=== PATIENT | male | born 1965 | race Caucasian/White ===

== ENCOUNTER 2019-10-12 12:33 | Emergency (ER) | payer MEDICAID, OTHER ==
--- NOTE | 2019-10-12 14:34 | CR ---
Chest and right ribs: Frontal view of the chest was obtained as well as three views of the right ribs. Comparison: No previous chest x-ray. Heart size is normal. Tortuous thoracic aorta is seen. Two small nodules are noted within the right lung base. Lungs otherwise are clear. No discrete fracture or other rib abnormality is appreciated. Scattered degenerative endplate spurring is noted within the spine. Impression: 1. Two small nodules within the right lung base. Chest CT recommended to further evaluate. This can be performed without contrast. 2. Nothing acute is otherwise seen within the chest. 3. No discrete right-sided rib abnormality is appreciated. Diagnostic code #9 Study was dictated in [place] Standard Time
[2019-10-12] MEDS ORDERED: Aspirin 81 MG Tab.Chew PO ONE (14:39)
--- NOTE | 2019-10-12 14:46 | EDM.PDOC ---
ED HPI GENERAL MEDICAL PROBLEM - General Chief Complaint: Chest Pain Stated Complaint: RT SIDE PAIN AFTER STROKE Time Seen by Provider: 10/12/19 12:55 Source of Information: Reports: Patient, RN Notes Reviewed - History of Present Illness INITIAL COMMENTS - FREE TEXT/NARRATIVE: 54-year-old male comes in with right-sided chest pain that started 2 days ago. He states this first started as a pleuritic achy type discomfort worse with deep breathing 2 days ago. Yesterday the discomfort started moving to the right upper chest and was more bothersome during the night, awakening him every couple hours or so. Today the discomfort is still there but less bothersome and now once again more down in the right lower chest area worse with deep breathing. What is interesting about his history is that he just suffered a CVA 6 days ago. He was given TPA at [facility] and then transferred to [facility]. His states that they did go in and interventionally and remove "2 clots from his carotid artery". the stroke symptoms involved expressive aphasia and right-sided numbness and tingling all of which has resolved. He was released home 3 or 4 days ago. He is on daily aspirin, eliquis and crestor. He does smoke and does have family history of heart disease. Treatments CLERK CARRIER: Reports: Other (see below) Other Treatments CLERK CARRIER: biofreeze topical spray to the right anterior chest area. Right Middle Mid-Anterior Chest Pain Score (Numeric/FACES): 5 - Related Data Allergies Allergy/AdvReac Type Severity Reaction Status Date / Time No Known Allergies Allergy Verified 10/12/19 12:45 Home Meds: Home Meds Apixaban [Eliquis] 5 mg PO BID 10/12/19 [History] Rosuvastatin Calcium [Crestor] 20 mg PO DAILY 10/12/19 [History] Past Medical History Cardiovascular History: Reports: Blood Clots/VTE/DVT, Hypertension - Past Surgical History Cardiovascular Surgical History: Reports: Other (See Below) Social & Family History - Tobacco Use Smoking Status *Q: Current Every Day Smoker Years of Tobacco use: 35 Packs/Tins Daily: 1 - Caffeine Use Caffeine Use: Reports: Coffee - Recreational Drug Use Recreational Drug Use: No ED ROS GENERAL - Review of Systems Review Of Systems: See Below Constitutional: Denies: Fever, Chills, Diaphoresis HEENT: Reports: No Symptoms Respiratory: Reports: Pleuritic Chest Pain. Denies: Shortness of Breath, Wheezing, Cough Cardiovascular: Reports: Chest Pain GI/Abdominal: Denies: Abdominal Pain, Nausea, Vomiting Musculoskeletal: Denies: Neck Pain, Shoulder Pain, Arm Pain, Back Pain Skin: Reports: No Symptoms Neurological: Reports: No Symptoms ED EXAM, GENERAL - Physical Exam Exam: See Below General Appearance: Alert, No Apparent Distress Eye Exam: Bilateral Eye: PERRL Nose: Normal Inspection Throat/Mouth: Normal Inspection, Normal Oropharynx Head: Atraumatic Neck: Supple Respiratory/Chest: No Respiratory Distress, Lungs Clear, Normal Breath Sounds, Chest Non-Tender Cardiovascular: Tachycardia GI/Abdominal: Soft, Non-Tender. No: Guarding Back Exam: No: CVA Tenderness (L), CVA Tenderness (R) Extremities: Normal Inspection, Normal Range of Motion. No: Pedal Edema, Leg Pain Neurological: Alert, Oriented, No Motor/Sensory Deficits, Other Skin Exam: Warm (Finger to nose testing normal), Dry, Normal Color EKG INTERPRETATION EKG Date: 10/12/19 Rhythm: Other (Sinus tach, rate 109) [place]: Normal P-Wave: Present QRS: LBBB ST-T: Elevated (Abnormal EKG) Course - Vital Signs Last Recorded V/S: Last Vital Signs Temp 96.9 F 10/12/19 12:46 Pulse Resp 19 10/12/19 12:46 BP 98/79 10/12/19 12:46 Pulse Ox 98 10/12/19 12:46 - Orders/Labs/Meds Labs: Laboratory Tests 10/12/19 10/12/19 Range/Units 13:40 13:40 WBC 9.27 H (4.23-9.07) K/mm3 RBC 5.50 (4.63-6.08) M/mm3 Hgb 16.0 (13.7-17.5) gm/dl Hct 48.3 (40.1-51.0) % MCV 87.8 (79.0-92.2) fl MCH 29.1 (25.7-32.2) pg MCHC 33.1 (32.2-35.5) g/dl RDW Std Deviation 47.0 H (35.1-43.9) fL Plt Count 386 H (163-337) K/mm3 MPV 9.2 L (9.4-12.3) fl Neut % (Auto) 70.9 H (34.0-67.9) % Lymph % (Auto) 13.9 L (21.8-53.1) % [place] % (Auto) 13.3 H (5.3-12.2) % Eos % (Auto) 1.3 (0.8-7.0) Baso % (Auto) 0.5 (0.1-1.2) % Neut # (Auto) 6.57 H (1.78-5.38) K/mm3 Lymph # (Auto) 1.29 L (1.32-3.57) K/mm3 [place] # (Auto) 1.23 H (0.30-0.82) K/mm3 Eos # (Auto) 0.12 (0.04-0.54) K/mm3 Baso # (Auto) 0.05 (0.01-0.08) K/mm3 Sodium 136 (136-145) mEq/L Potassium 3.8 (3.5-5.1) mEq/L Chloride 98 (98-107) mEq/L Carbon Dioxide 24 (21-32) mEq/L Anion Gap 17.8 H (5-15) BUN 20 H (7-18) mg/dL Creatinine 1.2 (0.7-1.3) mg/dL Est Cr Clr Drug Dosing 75.44 mL/min Estimated GFR (MDRD) > 60 (>60) mL/min BUN/Creatinine Ratio 16.7 (14-18) Glucose 105 (74-106) mg/dL Calcium 9.4 (8.5-10.1) mg/dL Total Bilirubin 0.7 (0.2-1.0) mg/dL AST 12 L (15-37) U/L ALT 25 (16-63) U/L Alkaline Phosphatase 104 (46-116) U/L Troponin I 1.461 H* (0.00-0.056) ng/mL Total Protein 8.3 H (6.4-8.2) g/dl Albumin 3.7 (3.4-5.0) g/dl Globulin 4.6 gm/dL Albumin/Globulin Ratio 0.8 L (1-2) Meds: Medications Discontinued Medications Generic Name Dose Route Start Last Admin Trade Name Freq PRN Reason Stop Dose Admin Aspirin 162 mg 10/12/19 14:39 10/12/19 14:54 Aspirin PO 10/12/19 14:40 162 mg ONETIME ONE Administration Sodium Chloride Confirm 10/12/19 15:56 Normal Saline Administered 10/12/19 15:57 Dose 1,000 mls @ as directed .ROUTE .STK-MED ONE Lorazepam 1 mg 10/12/19 15:12 10/12/19 15:25 Ativan IVPUSH 10/12/19 15:13 1 mg ONETIME ONE Administration - Re-Assessments/Exams Free Text/Narrative Re-Assessment/Exam: 10/12/19 14:40. Lab was called, his troponin did come back elevated at about 1.56. He has been resting comfortably in ED, No current chest pain other than mild discomfort R lower chest with deep inspiration. Did order aspirin 162 mg PO. He is on eliquis, that was started in the hospital about 5 days ago. 10/12/19 15:02. Dr Paulino, Hospitalist, [facility] accepting Phys. for direct admit. Will transfer by ground ambulance. Departure - Departure Time of Disposition: 15:03 Disposition: DC/Tfer to Acute Hospital 02 Reason for Transfer *Q: Other Condition: Fair Clinical Impression: Atypical chest pain, Elevated troponin, Acute coronary syndrome Referrals: PCP,None [Primary Care Provider] - Forms: ED Department Discharge Sepsis Event Note - Evaluation Sepsis Screening Result: No Definite Risk - Focused Exam Date Exam was Performed: 10/14/19 Time Exam was Performed: 08:35
[2019-10-12] MEDS ORDERED: LORazepam 2 MG/ML SDV IVPUSH ONE (15:12)
[2019-10-12] MEDS ORDERED: Sodium Chloride 0.9% 1,000 ML ONE (15:56)
== END 2019-10-12 16:00 ==
LOC: JD.ED 12:33
DX: I24.9 Acute ischemic heart disease, unspecified (principal); R79.89 Other specified abnormal findings of blood chemistry; I10 Essential (primary) hypertension; F17.210 Nicotine dependence, cigarettes, uncomplicated; Z86.718 Personal history of other venous thrombosis and embolism; Z79.01 Long term (current) use of anticoagulants; Z79.899 Other long term (current) drug therapy
CPT/HCPCS: 36415; 71101; 80053; 84484; 85025; 93005; 96374; 99285; A9270; J2060; 93010; 99284